=== PATIENT | female | born 1980 | race Caucasian/White ===

== ENCOUNTER → 2021-01-01 12:08 | Outpatient (CLI) | payer OTHER, SELFPAY ==
[2021-01-01 12:26] LABS: Add Manual Diff / Slide Review NO; Basophils Absolute Auto 0 /uL (0-100); Basophils Percent Auto 0.3 % (0-2); Eosinophils Absolute Auto 200 /uL (0-450); Eosinophils Percent Auto 1.8 % (2-4); Hematocrit 33.8 % (36-46); Hemoglobin 11.2 g/dL (12.0-16.0); Lymphocytes Absolute Auto 2000 /uL (1100-4500); Lymphocytes Percent Auto 22.2 % (25-40); Mean Corpuscular HGB Conc 33.2 % (30-36); Mean Corpuscular Hemoglobin 30.9 PG (26-34); Mean Corpuscular Volume 93.2 fL (80-100); Monocytes Absolute Auto 600 /uL (0-900); Monocytes Percent Auto 6.7 % (3-14); Neutrophils Absolute Auto 6100 /uL (1500-7000); Platelet Count 229 X10^3/uL (150-400); Red Blood Cell Count 3.63 X10^6/uL (4.0-5.2); White Blood Cell Count 8.8 X10^3/uL (4.5-11.0)
[2021-01-01 14:43] LABS: Appearance Urine UA CLEAR; Bilirubin Urine UA NEGATIVE (NEGATIVE); Color Urine UA YELLOW; Glucose Urine UA NEGATIVE (Negative); Ketones Urine UA NEGATIVE (NEGATIVE); Leukocyte Esterase Urine UA NEGATIVE (NEGATIVE); Nitrite Urine UA NEGATIVE (Negative); Occult Blood Urine UA 1+ (Negative); Protein Urine UA NEGATIVE (Negative); Urobilinogen Urine UA 0.2 E.U./dL (0.2)
[2021-01-01 14:44] LABS: pH Urine UA 6.5 (4.5-8.0)
[2021-01-01 14:54] LABS: Bacteria Urine Many (>30); RBC Urine 0-1/HPF (0-5/HPF); Squamous Epithelial Cell Urine 1-5 /HPF (0-5/HPF); WBC Urine 0-1/HPF (0-5/HPF)
[2021-01-01 19:22] LABS: Rubella Antibody IgG 94.9 IU/mL (>15)
[2021-01-01 20:00] LABS: Hep C Virus Ab w/Reflex Quant REACTIVE s/c (NEGATIVE)
[2021-01-01 21:00] LABS: HIV 1 & 2 Ab/Ag 4th Gen Combo NEGATIVE (NEGATIVE)
[2021-01-01 22:02] LABS: Hepatitis B Surface Antigen NEGATIVE s/c (NEGATIVE)
[2021-01-02 08:42] LABS: RPR Screen Non Reactive (Non Reactive)
[2021-01-02 12:42] LABS: Varicella IgG Antibody 707 index (Immune >165)
== END ==
PROVIDERS: Referring Provider Obstetrics & Gynecology; Visit Provider Obstetrics & Gynecology
DX: Z34.80 Encounter for supervision of other normal pregnancy, unspecified trimester (principal)
CPT/HCPCS: 36415; 80055; 81003; 81015; 86787; 86803; 86850; 86900; 86901; 87086; 87389; 87522

== ENCOUNTER → 2021-01-22 14:00 | Outpatient (CLI) | payer OTHER, SELFPAY | PROVIDERS: Referring Provider Obstetrics & Gynecology; Visit Provider Obstetrics & Gynecology | DX: O09.521 Supervision of elderly multigravida, first trimester (principal) | CPT/HCPCS: 36415; 81420 ==

== ENCOUNTER → 2021-02-19 12:29 | Outpatient (CLI) | payer OTHER, SELFPAY ==
[2021-02-21 19:55] LABS: AFP Value 28.2 ng/mL (.); Gest Age on Col Date 17.6 weeks (.); Gestational Age EDD (.); Insulin Dep Diabetes No (.); OSBR Risk 1IN 10000 (.); Results Report (.); Test Results *Screen Negative* (.)
== END ==
PROVIDERS: Referring Provider Obstetrics & Gynecology; Visit Provider Obstetrics & Gynecology
DX: Z34.82 Encounter for supervision of other normal pregnancy, second trimester (principal); Z3A.17 17 weeks gestation of pregnancy
CPT/HCPCS: 36415; 82105

== ENCOUNTER → 2021-03-08 10:38 | Outpatient (CLI) | payer OTHER, SELFPAY ==
--- NOTE | 2021-03-08 10:39 | DI.US.S_ITS ---
PROCEDURE: US OB >= 14 WEEKS FETUS INDICATIONS: ANATOMY OUTSIDE/PRIOR DATING DATA: Last menstrual period (LMP): Unknown . LMP-based estimated date of delivery ([facility]): Unknown . First dating scan (date and location): 12/25/2020. [place]. Estimated date of delivery ([facility]) from first dating scan: 07/26/2021. TECHNIQUE: Real-time scanning was performed of the fetus, with image documentation and biometric measurements. COMPARISON: [facility], , OB <= 14 WEEKS FETUS, 12/25/2020, 10:33. FINDINGS: General: A single living intrauterine gestation is present. Presentation: Vertex. Placenta: Placental position is anterior, the placenta is marginal. Amniotic fluid index: 12.9 cm, normal range is 5-24 cm. heart rate: 152 beats per minute. Maternal cervical canal: 4.3 cm long. Normal lower limit is 2.5 cm. biometrics: Biparietal diameter: 4.7 cm. 20 weeks 2 days Head circumference: 17.5 cm. 20 weeks 0 days Abdominal circumference: 15.4 cm. 20 weeks 4 days Femur length: 3.3 cm. 20 weeks 2 days Estimated gestational age from initial scan: 20 weeks 0 days Composite gestational age from present scan: 20 weeks 2 days Estimated weight and percentile: 352 g, 69 percentile. Measurement variability for biometric dating: +/- 7 days from 14 weeks to 15 weeks 6 days gestation, +/- 10 days from 16 weeks to 21 weeks 6 days gestation, +/- 2 weeks from 22 weeks to 27 weeks 6 days gestation, +/- 3 weeks for 28 weeks gestation or later. Anatomic survey: Neuro: Ventricles are non-dilated at less than 10 mm. Cisterna magna is normal at 3-11 mm. Cerebellum is normal in size and morphology. Nuchal skin fold: Normal at less than 6 mm between 14-21 weeks gestational age. Face: Nose and lips, facial profile are normal. Spine: No evidence for spina bifida. Heart: 4-chambered heart is present, with normal ventricular outflow tracts. There is a possible echogenic intracardiac focus. Diaphragm: Diaphragm is intact. Stomach: Left-sided stomach is present. Kidneys: No hydronephrosis. Normal is less than 5 mm in 2nd trimester, less than 7 mm in 3rd trimester. Cord: 3-vessel cord has orthotopic insertion. Bladder: Normal in size. Extremities: All 4 extremities identified. IMPRESSION: 1. Single live intrauterine with a estimated gestational age from initial scan of 20 weeks 0 days. 2. Appropriate growth. 3. Possible echogenic intracardiac focus in the left ventricular outflow tract. 4. All other anatomy is within normal limits. Dictated by: Tom Youssef M.D. on 03/08/2021 at 16:56 Approved by: Tom Youssef M.D. on 03/08/2021 at 17:07
== END ==
PROVIDERS: Referring Provider Obstetrics & Gynecology; Visit Provider Obstetrics & Gynecology
DX: Z34.82 Encounter for supervision of other normal pregnancy, second trimester (principal); Z3A.20 20 weeks gestation of pregnancy
CPT/HCPCS: 76811

== ENCOUNTER → 2021-03-12 08:18 | Outpatient (ROUT) | payer OTHER, SELFPAY ==
[2021-03-12 08:40] LABS: COVID19 -Nasal RAPID Negative (Negative)
== END ==
PROVIDERS: Visit Provider Nurse Practitioner
DX: R05 Cough (principal); Z20.822 Contact with and (suspected) exposure to COVID-19; J02.9 Acute pharyngitis, unspecified
CPT/HCPCS: 87635

== ENCOUNTER → 2021-04-12 09:42 | Outpatient (CLI) | payer OTHER, SELFPAY ==
[2021-04-12 11:25] LABS: Hematocrit 29.8 % (36-46); Hemoglobin 9.7 g/dL (12.0-16.0)
[2021-04-12 13:02] LABS: GTT (PREG) 1 Hour PP 50gm Dose 150 mg/dL (76-139)
== END ==
PROVIDERS: Referring Provider Obstetrics & Gynecology; Visit Provider Obstetrics & Gynecology
DX: Z34.82 Encounter for supervision of other normal pregnancy, second trimester (principal); Z3A.25 25 weeks gestation of pregnancy
CPT/HCPCS: 36415; 82950; 85014; 85018

== ENCOUNTER → 2021-04-29 12:01 | Outpatient (CLI) | payer OTHER, SELFPAY ==
--- NOTE | 2021-04-29 12:01 | DI.US.S_ITS ---
PROCEDURE: US OB LIMITED INDICATIONS: EPISODE OF BLEEDING/CRAMPING ON 04/10/2021 OUTSIDE/PRIOR DATING DATA: Last menstrual period (LMP): Unknown . LMP-based estimated date of delivery ([facility]): Unknown First dating scan (date and location): 12/25/2020 Estimated date of delivery (PARAD[facility]) from first dating scan: 07/26/2021 . TECHNIQUE: Real-time scanning was performed of the fetus, with image documentation and biometric measurements. Biophysical profile was also obtained. Endovaginal scanning: Performed for cervical length evaluation COMPARISON: [facility], OB >= 14 WEEKS FETUS, 03/08/2021, 11:24. FINDINGS: General: A single living intrauterine gestation is present. Presentation: Cephalic. Placenta: Placental position is anterior , without previa. Placental cord insertion is 1.8 cm from the placental edge, similar to the prior Amniotic fluid index: 16.3 cm, normal range is 5-24 cm. heart rate: 160 beats per minute. Maternal cervical canal: 4.0 cm long. Normal lower limit is 2.5 cm. Estimated gestational age from initial scan: 27 week 3 day IMPRESSION: Single live intrauterine consistent with 27 week 3 day gestation. No evidence of placental previa Approved by: Santana Ingram M.D. on 04/29/2021 at 12:57
== END ==
PROVIDERS: Referring Provider Obstetrics & Gynecology; Visit Provider Obstetrics & Gynecology
DX: O46.92 Antepartum hemorrhage, unspecified, second trimester (principal); Z3A.27 27 weeks gestation of pregnancy
CPT/HCPCS: 76815; 76817

== ENCOUNTER → 2021-05-03 07:46 | Outpatient (CLI) | payer OTHER, SELFPAY ==
[2021-05-03 08:28] LABS: Glucose Fasting Gestational 84 mg/dL (76-95)
[2021-05-03 10:03] LABS: Glucose 1 Hour Gest 179 mg/dL (76-180)
[2021-05-03 10:59] LABS: Glucose Tol Interp,Gestational INTERPRETATION
[2021-05-03 11:50] LABS: Glucose 3 Hour Gest 114 mg/dL (76-140)
[2021-05-03 11:53] LABS: Glucose 2 Hour Gest 141 mg/dL (76-155)
== END ==
PROVIDERS: Referring Provider Obstetrics & Gynecology; Visit Provider Obstetrics & Gynecology
DX: O09.522 Supervision of elderly multigravida, second trimester (principal); O99.810 Abnormal glucose complicating pregnancy; Z3A.26 26 weeks gestation of pregnancy
CPT/HCPCS: 36415; 82951; 82952

== ENCOUNTER → 2021-05-29 14:04 | Outpatient (CLI) | payer OTHER, SELFPAY ==
--- NOTE | 2021-05-29 14:06 | DI.US.S_ITS ---
PROCEDURE: US OB FOLLOW UP INDICATIONS: Marginal cord insertion, evaluate growth OUTSIDE/PRIOR DATING DATA: Last menstrual period (LMP): Unknown. First dating scan (date): December 25, 2020 . Estimated date of delivery ([facility]) from first dating scan: July 26, 2021 . TECHNIQUE: Real-time scanning was performed of the fetus, with image documentation and biometric measurements. COMPARISON: April 29, 2021. FINDINGS: General: A single living intrauterine gestation is present. Presentation: Cephalic. Placenta: Placental position is anterior , without previa. Amniotic fluid index: 12.6 cm, normal range is 5-24 cm. heart rate: 135 beats per minute. Maternal cervical canal: 4.2 cm long. Normal lower limit is 2.5 cm. biometrics: Biparietal diameter: 8.1 cm Head circumference: 29.2 cm Abdominal circumference: 26.9 cm Femur length: 6.2 cm Estimated gestational age from initial scan: not applicable. Composite gestational age from present scan: 32 weeks Estimated weight and percentile: 1791 g +/-265 g; 33 percentile Measurement variability for biometric dating: +/- 7 days from 14 weeks to 15 weeks 6 days gestation, +/- 10 days from 16 weeks to 21 weeks 6 days gestation, +/- 2 weeks from 22 weeks to 27 weeks 6 days gestation, +/- 3 weeks for 28 weeks gestation or later. weight reference: 4500 g or EFW >90/95% is considered macrosomia or large for gestational age. EFW <10% is small for gestational age. EFW 5% or less is considered intra-uterine growth restriction. Other: The placental cord insertion is not well seen. IMPRESSION: Live single intrauterine gestation as detailed above. Dictated by: Herb Kamara M.D. on 05/29/2021 at 15:05 Approved by: Herb Kamara M.D. on 05/29/2021 at 15:09
== END ==
PROVIDERS: Referring Provider Obstetrics & Gynecology; Visit Provider Obstetrics & Gynecology
DX: Z36.2 Encounter for other antenatal screening follow-up (principal); O26.03 Excessive weight gain in pregnancy, third trimester; Z3A.32 32 weeks gestation of pregnancy
CPT/HCPCS: 76816

== ENCOUNTER → 2021-06-21 17:01 | Outpatient (CLI) | payer OTHER, SELFPAY ==
[2021-06-22 12:50] LABS: Strep Grp B PCR NEG for Grp B Strep
== END ==
PROVIDERS: Visit Provider Obstetrics & Gynecology
DX: Z34.83 Encounter for supervision of other normal pregnancy, third trimester (principal); Z3A.35 35 weeks gestation of pregnancy
CPT/HCPCS: 87653

== ENCOUNTER → 2021-06-26 14:00 | Outpatient (CLI) | payer OTHER, SELFPAY ==
[2021-06-26 19:05] LABS: Hep C Virus Ab w/Reflex Quant REACTIVE s/c (NEGATIVE)
== END ==
PROVIDERS: Referring Provider Obstetrics & Gynecology; Visit Provider Obstetrics & Gynecology
DX: R76.8 Other specified abnormal immunological findings in serum (principal)
CPT/HCPCS: 36415; 86803; 87522

== ENCOUNTER → 2021-07-12 07:35 | Outpatient (CLI) | payer OTHER, SELFPAY ==
--- NOTE | 2021-07-12 07:36 | DI.US.S_ITS ---
PROCEDURE: US OB LIMITED INDICATIONS: SIZE GREATER THAN DATES. MARGINAL CORD INSERTION. OUTSIDE/PRIOR DATING DATA: Last menstrual period (LMP): Not known LMP-based estimated date of delivery ([facility]): Not applicable First dating scan (date and location): December 25, 2020 Estimated date of delivery ([facility]) from first dating scan: July 26, 2021 The calculations are made using the ultrasound [facility] of July 26, 2021 TECHNIQUE: Real-time scanning was performed of the fetus, with image documentation and biometric measurements. Endovaginal scanning: Performed COMPARISON: None. FINDINGS: General: A single living intrauterine gestation is present. Presentation: Vertex Placenta: Placental position is anterior. Amniotic fluid index: 11.6 cm, normal range is 5-24 cm. heart rate: 131 beats per minute. Maternal cervical canal: Not evaluated biometrics: Biparietal diameter: 36 weeks 2 days Head circumference: 39 weeks 1 day Abdominal circumference: 36 weeks 5 days Femur length: 38 weeks 1 day Clinically estimated gestational age: 38 weeks 0 days Composite gestational age from present scan: 37 weeks 4 days Estimated weight and percentile: 3174 grams; 44th percentile Other: Umbilical cord inserts approximately 2 centimeters from the left inferior edge of the placenta. IMPRESSION: 1. Single living intrauterine with appropriate interval growth. 2. Normal amniotic fluid index. 3. Marginal umbilical cord insertion. Dictated by: Ce Vee MD, PhD on 07/12/2021 at 13:40 We strive to produce accurate, complete, and clear reports of imaging services. To assist us in improving patient care, this report was composed using standard report templates and voice recognition software. Therefore, it may contain abnormal punctuation, misrecognitions, insertions and/or omissions. Occasional wrong-word or sound-alike substitutions may occur. Though we review the report and make efforts to correct it, we do recommend that the report be read carefully in proper context to recognize any text inaccuracies. Approved by: Ce Vee MD, PhD on 07/12/2021 at 13:43
== END ==
PROVIDERS: Referring Provider Obstetrics & Gynecology; Visit Provider Obstetrics & Gynecology
DX: Z36.88 Encounter for antenatal screening for fetal macrosomia (principal); Z3A.37 37 weeks gestation of pregnancy
CPT/HCPCS: 76815

== ENCOUNTER 2021-07-19 08:41 | Observation (INO) | payer OTHER, SELFPAY ==
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
[2021-07-19] MEDS: miSOPROStoL 25 MCG TABLET 50 MCG PO (09:40)
[2021-07-19] MEDS: LACTATED RINGERS 1,000 ML 100 ML IV ×2 (10:10→16:41)
[2021-07-19 10:19] LABS: COVID19 -Nasal RAPID Negative (Negative)
[2021-07-19 10:20] LABS: Add Manual Diff / Slide Review NO; Basophils Absolute Auto 0 /uL (0-100); Basophils Percent Auto 0.2 % (0-2); Eosinophils Absolute Auto 100 /uL (0-450); Eosinophils Percent Auto 0.6 % (2-4); Hematocrit 30.1 % (36-46); Lymphocytes Absolute Auto 1400 /uL (1100-4500); Lymphocytes Percent Auto 13.3 % (25-40); Mean Corpuscular HGB Conc 33.3 % (30-36); Mean Corpuscular Hemoglobin 29.8 PG (26-34); Mean Corpuscular Volume 89.4 fL (80-100); Monocytes Absolute Auto 600 /uL (0-900); Neutrophils Absolute Auto 8200 /uL (1500-7000); Neutrophils Percent Auto 79.9 % (50-75); Platelet Count 226 X10^3/uL (150-400); Red Blood Cell Count 3.37 X10^6/uL (4.0-5.2); Red Cell Distribution Width 14.6 % (11.6-14.8); White Blood Cell Count 10.3 X10^3/uL (4.5-11.0)
[2021-07-19 11:11] VITALS: BP 109/65
[2021-07-19] MEDS: OXYTOCIN PREMIX 30 UNIT/500 ML PLAST..BAG 200 UNIT IV (14:17)
--- NOTE | 2021-07-19 17:39 | PM.OBPNLAB ---
Date/Time Date Patient Seen: 07/19/21 Time Patient Seen: 17:39 Pain Control Pain control: tolerating well Pelvic Exam Comments: Cervix not re-evaluated Contractions Monitor mode: External Pitocin rate (mU/min): 11 Contraction frequency (min): 3 Contraction duration (min): 1 Contraction pattern: Regular Contraction phase: Resting Contraction intensity: Moderate Status status: Category l Heart Rate Baseline: 135 Monitor Accelerations: Present Monitor Decelerations: Absent Monitor Variability: Moderate Assessment and Plan Assessment: induction ongoing Comments: Due to staffing shortage, pitocin induction may need to be discontinued overnight due to safety concerns. Patient aware and understanding.
== END 2021-07-19 20:10 | disposition home or self-care (01) ==
PROVIDERS: Admitting Provider Obstetrics & Gynecology; Referring Provider Obstetrics & Gynecology; Visit Provider Obstetrics & Gynecology
DX: O43.893 Other placental disorders, third trimester (principal); O61.0 Failed medical induction of labor; O09.513 Supervision of elderly primigravida, third trimester; Z3A.38 38 weeks gestation of pregnancy
CPT/HCPCS: 36415; 59025; 59050; 59200; 85025; 86850; 86900; 86901; 87635; 96360; C9803; G0378; G0379; J2590

== ENCOUNTER 2021-07-21 19:25 | Inpatient (IN) | payer OTHER, SELFPAY ==
[2021-07-21 20:20] VITALS: BP 101/57
[2021-07-22] MEDS: ZOLPIDEM 5 MG TABLET PO (00:13)
[2021-07-22 02:08] LABS: Add Manual Diff / Slide Review NO; Basophils Absolute Auto 0 /uL (0-100); Basophils Percent Auto 0.4 % (0-2); Eosinophils Absolute Auto 100 /uL (0-450); Eosinophils Percent Auto 0.8 % (2-4); Hematocrit 31.8 % (36-46); Hemoglobin 10.4 g/dL (12.0-16.0); Lymphocytes Absolute Auto 1600 /uL (1100-4500); Lymphocytes Percent Auto 15.5 % (25-40); Mean Corpuscular HGB Conc 32.8 % (30-36); Mean Corpuscular Hemoglobin 29.8 PG (26-34); Monocytes Absolute Auto 500 /uL (0-900); Monocytes Percent Auto 5.2 % (3-14); Neutrophils Absolute Auto 7800 /uL (1500-7000); Neutrophils Percent Auto 78.1 % (50-75); Platelet Count 205 X10^3/uL (150-400); Red Cell Distribution Width 14.9 % (11.6-14.8)
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
[2021-07-22] MEDS: LACTATED RINGERS 1,000 ML 100 ML IV (12:00)
--- NOTE | 2021-07-22 13:27 | PM.OBPNLAB ---
Date/Time Date Patient Seen: 07/22/21 Time Patient Seen: 13:28 Pain Control Pain control: tolerating well Pelvic Exam Dilation (cm): 1 Effacement (%): 80 station: -1 Amniotic membrane status: Intact Contractions Contractions on admission: irregular Monitor mode: External Contraction frequency (min): 4 Contraction duration (min): 1 Contraction pattern: Irregular Contraction phase: Resting Contraction intensity: Moderate Status status: Category l Heart Rate Baseline: 145 Monitor Accelerations: Present Monitor Decelerations: Absent Monitor Variability: Moderate Assessment and Plan Assessment: induction ongoing Plan: begin patient augmentation
[2021-07-22] MEDS: OXYTOCIN PREMIX 30 UNIT/500 ML PLAST..BAG IV (13:59)
[2021-07-22 14:00] LABS: COVID19 -Nasal RAPID Negative (Negative)
--- NOTE | 2021-07-22 16:54 | PM.OBPNLAB ---
Date/Time Date Patient Seen: 07/22/21 Time Patient Seen: 16:55 Pain Control Pain control: tolerating well Pelvic Exam Dilation (cm): 2 Effacement (%): 80 station: -1 Amniotic membrane status: Intact Contractions Contractions on admission: irregular Monitor mode: External Pitocin rate (mU/min): 5 Contraction frequency (min): 4 Contraction duration (min): 1 Contraction pattern: Irregular Contraction phase: Resting Contraction intensity: Moderate Status status: Category l Heart Rate Baseline: 145 Monitor Accelerations: Present Monitor Decelerations: Absent Monitor Variability: Moderate Assessment and Plan Assessment: induction ongoing Comments: Titrate pitocin for effective labor/contractions. Attempted bolden cath placement but unsuccessful due to patient tension and intolerance of two fingers PV. Patient understands that pitocin augmentation may need to be suspended overnight elvia to short staffing.
[2021-07-22] MEDS: ZOLPIDEM 5 MG TABLET 10 MG PO (23:23)
[2021-07-23] MEDS: DINOPROSTONE VAG (CERVIDIL) 10 MG VAG (00:12)
[2021-07-23] MEDS: fentaNYL 100 MCG/2 ML INJ 50 MCG IV (06:00)
--- NOTE | 2021-07-23 07:19 | PM.OBPNLAB ---
Date/Time Date Patient Seen: 07/23/21 Time Patient Seen: 07:05 Pain Control Pain control: other (Tolerating contractions with difficulty) Comments: Patient is exhausted and requests for delivery Pelvic Exam Dilation (cm): 2 Effacement (%): 80 station: -1 Amniotic membrane status: Intact Contractions Contractions on admission: regular Monitor mode: External Pitocin rate (mU/min): 0 Contraction frequency (min): 3 Contraction duration (min): 1 Contraction pattern: Irregular Contraction phase: Resting Contraction intensity: Moderate Status status: Category l Heart Rate Baseline: 1 Monitor Accelerations: Present Monitor Decelerations: Episodic Monitor Variability: Moderate Assessment and Plan Assessment: other (Pitocin augmentation discontinued ) Plan: Comments: Despite adequate contraction activity, patient has failed to advance vertex beyond -1-2 station or further dilate beyond 2 cm. Patient requests primary due to the lack of progress combined with the fact that nobody in her mother's family has successfully delivered vaginally and I concur with her decision due to failed induction. Patient counselled re: alternatives, risks, benefits and potential complications associated with primary . With full understanding of the above, a written consent for primary section was executed, signed, and witnessed.
[2021-07-23] MEDS: LACTATED RINGERS 1,000 ML 100 ML IV ×2 (08:16→09:17)
--- NOTE | 2021-07-23 09:30 | SUR.OPER ---
Supine on padded OR bed, head on pillow, arms secured on padded arm boards at <90 degrees abduction, legs uncrossed, safety belt at thigh, tape over blanket over lower legs. Bump placed under patinet's right hip.
[2021-07-23] MEDS: CITRIC ACID/SODIUM CITRATE 15 ML SOLUTION 30 ML PO (09:44)
[2021-07-23] MEDS: CEFAZOLIN 2 GM/20 ML SYRINGE IV (10:20)
[2021-07-23] MEDS: AZITHROMYCIN 500 MG in DEXTROSE 5% IN WATER 250 ML IV (10:26)
--- NOTE | 2021-07-23 10:31 | SUR.OPER ---
VIABLE BABY GIRL BORN AT 1037. CORD BLOOD X2 AND PLACENTA GIVEN TO OB NURSE
[2021-07-23] MEDS: LACTATED RINGERS 1,000 ML 1000 ML IV (10:53)
[2021-07-23 11:27] VITALS: BP 90/57; PULSE 77; RESP 75; TEMP 36.3; O2SAT 93
[2021-07-23 11:31] VITALS: BP 97/54; PULSE 78; RESP 83; O2SAT 93
--- NOTE | 2021-07-23 11:33 | P.OP_ITS ---
Operative Date/Time/Diagnoses Date of procedure: 07/23/21 Time of procedure: 10:00 Pre-op diagnosis: Intrauterine gestation, 39+ 3 weeks Advanced Maternal Age Failed induction Marginal insertion of the umbilical cord Post-op diagnosis: same Procedure & Clinicians Procedure: Primary section (low transverse cervical) Same procedure as scheduled: Yes Indications: Patient is a 32-year-old at 39+ 3 weeks gestational age who has undergone serial induction for the last 36 hours and has failed to advance the vertex beyond-1 to -2 station with cervical dilation remaining 2 cm for at least the last 18 hours. After counseling regarding all options the patient is adamant that she wishes to proceed with primary delivery and in the face of failed induction is undergoing delivery at this time. Surgeon: Lars Masterson Brick And Tile Making Machine Operator: Brittney Rios Reason for Brick And Tile Making Machine Operator: Required for the timely, safe, and affect performance of primary delivery. Anesthesia Type: Spinal Operative Notes Findings: Viable female Closure Type: primary Specimen(s): cord blood Intraoperative meds administered: Ketorolac and Pitocin Applied: Catheter Estimated Blood Loss (mL): 500 Blood products transfused: none Procedure in detail: With her informed written consent, the patient was taken to the operating room and placed in the supine position for a [] section procedure, for the indication(s) above. The abdomen was prepped and draped in the usual manner for section and a pre-surgical timeout was taken per [facility] OR protocol. Once effective anesthesia was confirmed, a 15 cm transverse Pfannenstiel incision was made in the skin and taken down through the subcutaneous tissues to the deep fascia. The deep fascia was incised transversely, the rectus abdomini bluntly and sharply, and the peritoneal cavity entered without difficulty. The lower uterine segment was visualized and the position/presentation palpated. A transverse incision at or above the vesicouterine reflection was made with Metzenbaum scissors and transverse hysterotomy performed near the midline. Amniotomy revealed clear fluid. The incision was extended bilaterally with digital traction and the was delivered with assistance of vacuum extractor from the [place] presentation. The female infant was vigorous and cord clamping delayed for 60 seconds. BW was 3083 gms. and Apgars were 9/9. The placenta was delivered intact using gentle cord traction and fundal massage and cord blood obtained for routine neewborn studies. The uterine cavity was then cleared of any clot/debris first with a sloppy wet lap tape followed by a dry lap tape. Ring forceps were then applied to the angles and the midline of the incised ANANYA. A primary closure of the uterus was then accomplished with #1 CCGS in a running interlocking stitch followed by a 2nd layer of #1 CCGS in a running interlocking imbricating stitch. No additional sutures were required to achieve complete hemostasis. Bladder flap was closed with running 2-0 Vicryl. Once pelvic hemostasis was assured, the anterior peritoneum was closed with a running 2-0 Vicryl suture and the fascia closed with #1 Vicryl in a running stitch initiated at both angles and tying separately near the midline. The subcutaneous tissues were reapproximated with 3-0 Vicryl suture using inverted interrupted stitches. The skin edges were then brought together with 4-0 Monocryl in a subcuticular closure and the incision was reinforced with half-inch Steri-Strips. An appropriate compression dressing was applied and the patient transferred to PACU for recovery with subsequent transfer to the Center for recuperation. Complications: none Baby 1: Gender: Female Presentation: vertex Position: Left Occiput Anterior Placental Delivery Description: Expressed and Uterine Exploration Cord Vessel Description: 3 Vessels and Other (Shoulder cord, left) score (1 min): 9 score (5 min): 9 weight: 6 lb 12.75 oz Post-operative Condition: stable Disposition: PACU Aftercare: routine postop
[2021-07-23 11:36] VITALS: BP 100/60; PULSE 86; RESP 15; O2SAT 92
[2021-07-23 11:41] VITALS: BP 97/56; PULSE 90; RESP 16; O2SAT 94
[2021-07-23 11:46] VITALS: BP 105/63; PULSE 92; RESP 18; O2SAT 93
[2021-07-23] MEDS: diphenhydrAMINE 50 MG/ML VIAL 25 MG IV (13:01)
[2021-07-23] MEDS: ACETAMINOPHEN 325 MG TABLET 650 MG PO ×2 (15:10→22:16)
[2021-07-23] MEDS: IBUPROFEN 600 MG TABLET PO ×2 (17:03→22:15)
[2021-07-24] MEDS: IBUPROFEN 600 MG TABLET PO ×3 (05:10→17:30)
[2021-07-24] MEDS: OXYCODONE IR 5 MG TABLET PO ×4 (06:01→21:49)
[2021-07-24 06:59] LABS: Hemoglobin 8.4 g/dL (12.0-16.0)
[2021-07-24 07:08] LABS: Hematocrit 24.6 % (36-46)
--- NOTE | 2021-07-24 08:37 | PM.OBPN.1 ---
Subjective - OB Subjective Patient comments: pain well controlled, tolerating diet and flatus present [place] baby status: doing well feeding status: exclusively breast feeding Narrative: Patient is doing extremely well overnight following her primary yesterday. Bleeding is minimal. She has started passing gas and is ambulating. She is requiring minimal narcotics for pain. H&H this morning consistent with observed operative losses. Date Patient Seen: 07/24/21 Time Patient Seen: 07:50 Interval history: Doing extremely well. Ambulating ahead of schedule. Good pain control. Tolerating PO well. Exam Vital Signs (past 8 hours): Oxygen Delivery Method Room Air Const General: cooperative and comfortable Nutritional Appearance: average body habitus Orientation: alert and oriented x3 HENMT Head: normal to inspection Eyes General: appearance normal, both eyes and all related structures Neck Neck: normal visual inspection Resp Effort & Inspection: normal respiratory effort and able to speak in complete sentences Auscultation: clear to auscultation bilaterally Cardio Rate: regular rate Rhythm: regular rhythm Heart Sounds: S1 normal, S2 normal and no murmurs GI Inspection: incision (Dressing clean and dry) Palpation: mass (U-1, firm NT) General: other (Deferred) Psych Appearance: grossly normal Mental Status: mental status grossly normal Speech and Movement: speech and movement normal Mood: congruent mood Affect: normal affect Attitude: cooperative Thought Process: normal Thought Content: normal Judgment: judgment good Objective Labs Result Diagrams: 07/24/21 06:38 Labs: Laboratory Results - last 24 hr 07/24/21 06:38 Hgb 8.4 L Hct 24.6 L Assessment & Plan Plan day: 1 plan OB: routine postop care Time Spent With Patient Time: Total time spent is greater than 50% in coordination of care (as documented) at patient's floor/unit and/or counseling patient: Time with patient: less than 15 minutes
[2021-07-24] MEDS: DOCUSATE 100 MG CAPSULE 200 MG PO (08:38)
[2021-07-24] MEDS: ACETAMINOPHEN 325 MG TABLET 650 MG PO ×3 (08:38→20:42)
[2021-07-24] MEDS: LANOLIN OINT 7 GM 1 APPLIC TOP (15:38)
[2021-07-25] MEDS: OXYCODONE IR 5 MG TABLET PO ×3 (01:37→09:58)
[2021-07-25] MEDS: IBUPROFEN 600 MG TABLET PO ×2 (01:38→09:58)
[2021-07-25] MEDS: ACETAMINOPHEN 325 MG TABLET 650 MG PO ×2 (04:21→09:57)
[2021-07-25] MEDS: LEVOTHYROXINE 125 MCG TABLET PO (05:45)
--- NOTE | 2021-07-25 06:40 | PM.OBDS.1 ---
Discharge Providers Provider Date of admission: 07/21/21 19:25 Discharge Date: 07/25/21 Primary care physician: Munir Johnston DO Consults: 07/23/21 12:39 Consult to Aircraft Engine Installer Routine Comment: Discharge provider: Lars Masterson MD Summary Hospital Course Date Patient Seen: 07/25/21 Time Patient Seen: 06:41 Diagnoses: Intrauterine , [place], 39+ 4 weeks gestational age, delivered Hospital Course: The patient was originally admitted for induction on the evening of 07/18/2021 and was initiated on Cytotec orally followed by Pitocin on 07/19/2021. Unfortunately the patient did not progress or dilator cervix by the end of 07/19/2021 and due to staffing shortage the patient was sent home. She returned on the evening of 07/22/2021 and again underwent induction overnight and into 07/23/2021. Unfortunately she failed to advance the vertex beyond-1 station and dilated no further than 2 cm over period of 18 hours of adequate Pitocin augmentation. Attempts to place a Robert balloon were unsuccessful. With greater than 24 hours of induction and no change in cervical exam for at least 18 hours a primary section by low transverse cervical incision was performed for failed induction/failure to progress on the afternoon of 07/23/2021. Details of her primary section or well summarized on the dictated operative note of that date. Following her surgery she has done extremely well with prompt return of bowel and bladder function, she is ambulating independently, tolerating a regular diet well, and her pain levels are well controlled with oral medications. She will be discharged at this time in an afebrile normotensive condition to home with medications to include Percocet 1 p.o. q.4-6 hours as needed pain dispensed 20, ibuprofen 600 mg p.o. q.6 hours as needed pain dispense 60 with 3 refills, and Colace 100 mg p.o. b.i.d. times 30 days. Prior to discharge the patient was counseled regarding precautionary symptoms, limitations of activity, medications, and follow-up. She will be seen in the office in 1 week for a dressing removal and incision check. The patient has made no decisions yet about contraception. Peripartum Data Delivery Method: Section Laceration Description: None Episiotomy description: None Procedures: Primary Section complications: none [place] 1: Gender: Female Disposition of : home Status at Discharge Cognitive/behavioral status at discharge: oriented Functional status at discharge: independent ambulation Overall status at discharge: patient is progressing back to baseline Time Spent with Patient Time attestation: Total time spent providing and/or coordinating discharge services: Time spent: Less than 30 minutes Objective Labs Result Diagrams: 07/24/21 06:38 Labs: Laboratory Results - last 24 hr 07/24/21 06:38 Hgb 8.4 L Hct 24.6 L Exam Vital Signs (past 8 hours): Oxygen Delivery Method Room Air Const General: cooperative and comfortable Nutritional Appearance: average body habitus Orientation: alert and oriented x3 HENMT Head: normal to inspection, normocephalic and atraumatic Face and sinus: face symmetric Eyes General: appearance normal, both eyes and all related structures Neck Neck: normal visual inspection Resp Effort & Inspection: normal respiratory effort and able to speak in complete sentences Auscultation: clear to auscultation bilaterally Cardio Rate: regular rate Rhythm: regular rhythm Heart Sounds: S1 normal, S2 normal and no murmurs GI Inspection: normal to inspection Palpation: soft, no hepatosplenomegaly and mass (U-3 firm, NT fundus) Auscultation: normal bowel sounds Extrem General: no calf tenderness Psych Appearance: grossly normal Mental Status: mental status grossly normal Speech and Movement: speech and movement normal Mood: congruent mood Affect: normal affect Attitude: cooperative Thought Process: normal Thought Content: normal Judgment: judgment good Discharge Plan Discharge Plan Patient Disposition: Home Provider Discharge Comment: Please review the written instructions you received when you are discharged from the hospital. Your follow-up visit for dressing removal and incision check will be made in 1 week. In the meanwhile, if you have any questions, concerns, or problems, please feel free to contact me either by phone or through the patient portal. Discharge orders & Medications Prescriptions: New ibuprofen 600 mg Tablet 600 mg PO Q6H PRN (Reason: Fever/Mild Pain (1-3)) Qty: 60 3RF oxycodone-acetaminophen [Percocet] 5-325 mg tablet 1 tab PO Q4-6H PRN (Reason: pain) Qty: 20 0RF docusate sodium 100 mg Capsule 100 mg PO BID 30 Days Qty: 60 0RF Continued ferrous sulfate 325 mg (65 mg iron) tablet 325 mg PO BID Qty: 60 6RF Rx Instructions: Take iron with 500 mg tablet Vitamin C ascorbic acid (vitamin C) 500 mg tablet 250 mg PO BID Qty: 60 6RF Label Comments: has not taken Iron for a few days due to it causes constipation Rx Instructions: Take with iron tablet omeprazole 40 mg capsule,delayed release(DR/EC) 40 mg PO DAILY Qty: 30 3RF Zyrtec 10 mg capsule 10 mg PO DAILY PRN (Reason: allergy symptoms) Qty: 30 12RF prenat.vits,saadia,sef-lfll-sloit Tablet 1 tab PO DAILY 0RF Unisom (doxylamine) 25 mg tablet 25 mg PO BEDTIME PRN (Reason: Sleep) 0RF pyridoxine (vitamin B6) 50 mg tablet 25 mg PO TID 0RF levothyroxine 125 mcg tablet 125 mcg PO DAILY 0RF Follow up/Referrals: Munir Johnston DO [Primary Care Provider] - Diet/Activity/Treatments Diet: Diet as Tolerated Activity: As tolerated Skin/Wound/Dressing Care Report to your healthcare provider any signs of infection, such as:: chills, fever, increased pain, unusual drainage and unusual redness Dressing: Leave dressing in place until you're seen in the office next week. Visit Report/Discharge Packet Instructions: DI for , DI for and Nipple Soreness, DI for Prescription Opioid Use Discharge Data Primary Care Provider: Munir Johnston
[2021-07-25] MEDS: DOCUSATE 100 MG CAPSULE 200 MG PO (09:58)
[2021-07-25 15:12] VITALS: BP 106/61; PULSE 94; RESP 18; TEMP 36.4
== END 2021-07-25 13:30 | disposition home or self-care (01) | DRG 788 ==
PROVIDERS: Admitting Provider Obstetrics & Gynecology; Referring Provider Obstetrics & Gynecology; Visit Provider Obstetrics & Gynecology
PROC: 10D00Z1 Extraction of Products of Conception, Low, Open Approach (ICD-10-PCS; CPT 59514; principal; 2021-07-23 09:45)
DX: O61.0 Failed medical induction of labor (principal); Z3A.39 39 weeks gestation of pregnancy; Z37.0 Single live birth; Z20.822 Contact with and (suspected) exposure to COVID-19
CPT/HCPCS: 36415; 59050; 59510; 85014; 85018; 85025; 86850; 86900; 86901; 87635; C9803; G0379; J0690; J1200; J1885; J2274; J2405; J2590; J2765; J3010